=== PATIENT | female | born 1950 | race Caucasian/White ===

== ENCOUNTER 2024-10-11 00:43 | Inpatient (IN) | payer OTHER ==
--- OUTSIDE RECORDS SUMMARY | 2024-10-11 00:46 | XMS REPORT | Continuity of Care Document ---
Author Name Unknown Address [address] [place] [address] [facility] thconnect Address [address] [place] [address] Care Team Providers Care Chief Librarian Work With Blind Name Role Phone ChenCarlo Momo Primary Care Physician [phone] ORTIZ ANTOINE Attending Clinician ORTIZ Ocampo Attending Clinician UnavailOrtiz Rice MD Attending Clinician [phone] Doctor Unassigned, Tamora Attending Clinician U navailable GC_GCBZW_Kadiyala_S Attending Clinician Unavailcain ble Therapy, Adc Covid Infusion Attending Clinician Unavailable Brennen Snowden MD Attending Clinician [phone] BRENNEN SNOWDEN Attending Clinician Unavailable Ortiz Antoine MD Admitting Clinician [phone] ORTIZ ANTOINE Admitting Clinician Naomi muñoz GC_GCBZW_Kadiyala_S Admitting Clinician Unavaila matthew Payers Payer Name Policy Type Policy Number Effective Date Expirati on Date Source [employer] CHOICE [id number] 2020 00:00:00 [employer] (MEDICARE REPLACEMENT/ADVAN TAGE - PPO) [id number] Problems Condition Name Condition Details Condition Category Status Onset Date Resolution Date Last Treatment Date Treating Clinician Comments Source Ganglion cyst of finger of right hand Ganglion cyst of finger of right hand Disease Active 12-19 00:00: 00 [facility] Pre-op testing Pre-op testing Disease Active 2024-0 2-06 00:00: 00 [facility] Inconclusi ve mammograph y finding Inconclusi ve Mammograph y Finding Problem Active 9- 00:00: 00 [facility] Abnormal findings on diagnostic imaging of breast Abnormal Findings on Diagnostic Imaging of Breast Problem Active 9 00:00: 00 [facility] Screening mammograph y Screening Mammograph y Problem Active 05-27 00:00: 00 [facility] Screening for malignant neoplasm of colon Screening for Malignant Neoplasm of Colon Problem Active 05-27 00:00: 00 [facility] Lateral cystocele Lateral Cystocele Problem Active 05-27 00:00: 00 [facility] Genuine stress incontinen ce Genuine Stress Incontinen ce Problem Active 05-27 00:00: 00 [facility] Atrophic vaginitis Atrophic Vaginitis Problem Active 05-22 00:00: 00 [facility] Gynecologi rogers examinatio n abnormal Gynecologi rogers Examinatio n Abnormal Problem Active 05-22 00:00: 00 [facility] Allergies, Adverse Reactions, Alerts Allergy Name Allergy Type Status Severity Reaction(s) Onset Date Inactive Date Treating Clinician Comments Source CODEINE DRUG INGREDI Active Dizziness 2020-11 0 00:00: 00 [facility] Codeine Propensi ty to adverse reaction s Active Dizziness 2020-11 0 00:00: 00 [facility] NO KNOWN ALLERGIE S Drug Class Active [facility] CODEINE SULFATE Allergy to substanc e Active [facility] Social History Social Habit Start Date Stop Date Quantity Comments Source [facility] function 2024-01-01 00:00:00 2024-01-01 00:00:00 [facility] Tobacco use and exposure 2023-12-22 00:00:00 2023-12-22 00:00:00 Smokeless tobacco non-user [facility] Sex Assigned At 1950 00:00:00 1950 00:00:00 [facility] Smoking Status Start Date Stop Date Source Tobacco smoking consumption unknown [facility] Never smoked tobacco [facility] Medications Ordered Medication Name Filled Medication Name Start Date Stop Date Current Medication? Ordering Clinician Indication Dosage Frequency Signature (SIG) Comments Components Source FENTanyl PF (SUBLIMAZE (PF)) injection 25 mcg 01-01 18:37: 58 Yes 25ug 25 mcg, Slow IV Push, Q5MIN PRN, 4 doses, Starting on Mon01/01/24 at 1237, Until Discontinu ed, Routine, Pain (scale 4-6), [facility] ondansetron (ZOFRAN (PF)) injection 4 mg 01-01 18:37: 58 Yes 4mg 4 mg, Slow IV Push, PRN, 1 dose, Starting on Mon01/01/24 at 1237, Until Discontinu ed, Routine, Nausea and Vomiting (N/V), PACU [facility] bupivacaine (preserv free) (SENSORCAIN E MPF) 0.25 % (2.5 mg/mL) injection 01-01 17:59: 00 01-01 18:09 :59 No PRN, Starting on Mon01/01/24 at 1159, Until Mon01/01/24 at 1209, Routine, Intra-op [facility] sodium chloride 0.9 % irrigation solution 01-01 17:51: 00 01-01 18:09 :59 No PRN, Starting on Mon01/01/24 at 1151, Until Mon01/01/24 at 1209, Intra-op [facility] lactated ringers IV infusion 1,000 mL 01-01 16:15: 00 01-01 16:33 :00 No 1000mL at 42 mL/hr, 1,000 mL, IV Infusion, ONCE, 1 dose, On Mon01/01/24 at 1015, Routine, DSU Pre-op [facility] traMADoL 50 mg tablet 01-01 00:00: 00 01-09 05:59 :00 No [id number] 50mg Take 1 tablet by mouth every 6 (six) hours as needed for Pain (scale 4-6) or Pain (scale 7-10) for up to 7 days. Indication s: acute pain [facility] casirivimab -imdevimab (REGEN-COV (EUA)) injection 1,200 mg 2020-11 009 15:15: 00 08-21 14:02 :00 No [id number] 1200mg 1,200 mg, Subcutaneo us, ONCE, 1 dose, On 08/21/21 at 1015, Routine [facility] Vital Signs Vital Name Observation Time Observation Value Comments S ource Height 2024-06-12 00:00:00 64 [in_i] [facility] BMI (Body Mass Index) 2024-06-12 00:00:00 27.4 kg/m2 [facility] BP Systolic 2024-06-12 00:00:00 147 mm[Hg] [facility] Body Weight 2024-06-12 00:00:00 159.8 [lb_av] [facility] BP Diastolic 2024-06-12 00:00:00 72 mm[Hg] [facility] Systolic blood pressure 2024-01-01 19:25:00 125 mm[Hg] [facility] Diastolic blood pressure 2024-01-01 19:25:00 64 mm[Hg] [facility] Heart rate 2024-01-01 19:25:00 71 /min [facility] Respiratory rate 2024-01-01 19:25:00 18 /min [facility] Oxygen saturation in Arterial blood by Pulse oximetry 2024-01-01 19:25:00 94 /min [facility] Body temperature 2024-01-01 18:09:[address] [facility] Body weight 2023-12-20 16:38:00 71.3 kg [facility] BMI 2023-12-20 16:38:00 26.98 kg/m2 [facility] Systolic blood pressure 2024-01-01 19:25:00 125 mm[Hg] [facility] Diastolic blood pressure 2024-01-01 19:25:00 64 mm[Hg] [facility] Heart rate 2024-01-01 19:25:00 71 /min [facility] Respiratory rate 2024-01-01 19:25:00 18 /min [facility] Oxygen saturation in Arterial blood by Pulse oximetry 2024-01-01 19:25:00 94 /min [facility] Body temperature 2024-01-01 18:09:[address] [facility] Body weight 2023-12-20 16:38:00 71.3 kg [facility] BMI 2023-12-20 16:38:00 26.98 kg/m2 [facility] Body height 2023-12-14 15:36:00 162.6 cm [facility] Body weight 2023-12-14 15:36:00 72.122 kg [facility] BMI 2023-12-14 15:36:00 27.29 kg/m2 [facility] Systolic blood pressure 2021-08-21 14:47:00 124 mm[Hg] [facility] Diastolic blood pressure 2021-08-21 14:47:00 73 mm[Hg] [facility] Heart rate 2021-08-21 14:47:00 94 /min [facility] 2021-08-21 14:47:00 37.17 [facility] Respiratory rate 2021-08-21 14:47:00 20 /min [facility] Oxygen saturation in Arterial blood by Pulse oximetry 2021-08-21 14:47:00 94 /min [facility] Body height 2021-08-21 14:00:00 162.6 cm [facility] Body weight 2021-08-21 14:00:00 69.854 kg [facility] BMI 2021-08-21 14:00:00 26.43 kg/m2 [facility] Procedures Procedure Date / Time Performed Performing Clinician Source MAMMO, diagnostic, digital, bilateral 2024-06-12 00:00:00 [facility] US, breast, bilateral 2024-06-12 00:00:00 [facility] EXTERNAL PROVIDER RECORDS 2024-01-05 06:01:00 Do ctor Unassigned, Tamora [facility] HAND MASS EXCISION 2024-01-01 17:11:[address] [facility] DAY SURGERY - ADC 2024-01-01 06:01:00 Doctor Milka ssigned, Tamora [facility] EKG (SCANNED DOCUMENTS) 2023-12-29 06:01:00 Doct or Unassigned, Tamora [facility] XR CHEST 2 VW 2023-12-28 14:22:39 [facility] 2023-12-20 06:01:00 Do ctor Unassigned, Tamora [facility] DSU PRE-OP 2023-12-15 06:01:00 Doctor Unass igned, Tamora [facility] [id number] CONSENT 2021-08-21 05:01:00 Doctor Unas signed, Tamora [facility] Excision of Cyst of Breast 2014-11-13 00:00:00 [facility] Hemorrhoidectomy 2002-11-13 00:00:00 [facility] Repair of Cystocele 1971-11-13 00:00:00 [facility] Appendectomy 1966-11-13 00:00:00 [facility] Tonsillectomy 1957-11-13 00:00:00 [facility] Medical Encounters Start Date/Time End Date/Time Encounter Type Admission Type Attending Clinicians Care Facility Care Department Encounter ID Source 2024-06-12 00:00:00 2024-06-12 00:00:00 MASON Reyes: [address], [place] [address] , Ph. [facility] - GC_GCBZW_[facility]* [id number] [facility] 2024-01-15 16:00:00 2024-01-15 17:06:34 Outpatient R ORTIZ ANTOINE [facility] [id number] [facility] 2024-01-15 16:00:00 2024-01-15 17:06:34 [facility] 1.2.840.114 350.1.13.10 4.2.7.2.686 [id number] [facility] 2024-01-05 00:00:00 2024-01-05 00:00:00 Orders Only Doctor Unassigned, Tamora [facility] 1.2.840.114 350.1.13.10 4.2.7.2.686 [id number] [facility] 2024-01-03 13:30:00 2024-01-03 13:30:00 Outpatient R ORTIZ ANTOINE [facility] [id number] [facility] 2024-01-01 13:15:00 2024-01-01 15:24:00 Surgery Ortiz Antoine [facility] 1.2.840.114 350.1.13.10 4.2.7.2.686 [id number] [facility] 2024-01-01 10:03:00 2024-01-01 13:35:00 Hospital Encounter Ortiz Antoine [facility] 1.2.840.114 350.1.13.10 4.2.7.2.686 [id number] [facility] 2024-01-01 10:03:00 2024-01-01 13:35:00 Outpatient R ORTIZ ANTOINE [facility] S[facility] [id number] [facility] 2024-01-01 00:00:00 2024-01-01 00:00:00 Orders Only Doctor Unassigned, Tamora [facility] 1.2.840.114 350.1.13.10 4.2.7.2.686 [id number] [facility] 2023-12-29 00:00:00 2023-12-29 00:00:00 Orders Only Doctor Unassigned, Tamora [facility] 1.2.840.114 350.1.13.10 4.2.7.2.686 [id number] [facility] 2023-12-29 00:00:00 2023-12-29 00:00:00 Telephone Ortiz Antoine [facility] 1.2840.114 350.1.13.10 4.2.7.2.686 [id number] [facility] 2023-12-29 00:00:00 2023-12-29 00:00:00 Telephone Ortiz Antoine [facility] 1.2840.114 350.1.13.10 4.2.7.2.686 [id number] [facility] 2023-12-28 08:02:54 2023-12-28 23:59:00 Hospital Encounter Ortiz Antoine [facility] 1.2840.114 350.1.13.10 4.2.7.2.686 [id number] [facility] 2023-12-28 08:02:30 2023-12-28 23:59:00 Outpatient R ORTIZ ANTOINE [facility] [id number] [facility] 2023-12-28 08:02:30 2023-12-28 23:59:00 Hospital Encounter Ortiz Antoine [facility] 1.2840.114 350.1.13.10 4.2.7.2.686 [id number] [facility] 2023-12-28 00:00:00 2023-12-28 00:00:00 Telephone Ortiz Antoine [facility] 1.2840.114 350.1.13.10 4.2.7.2.686 [id number] [facility] 2023-12-26 00:00:00 2023-12-26 00:00:00 Telephone Ortiz Antoine [facility] 1.2840.114 350.1.13.10 4.2.7.2.686 [id number] [facility] 2023-12-20 00:00:00 2023-12-20 00:00:00 Orders Only Doctor Unassigned, Tamora [facility] 1.2840.114 350.1.13.10 4.2.7.2.686 [id number] [facility] 2023-12-19 00:00:00 2023-12-19 00:00:00 Prep For Surgery Ortiz Antoine [facility] 1.0.114 350.1.13.10 4.2.7.2.686 [id number] [facility] 2023-12-18 13:30:00 2023-12-18 13:30:00 Outpatient R ORTIZ ANTOINE [facility] [id number] [facility] 2023-12-18 00:00:00 2023-12-18 00:00:00 Telephone Ortiz Antoine [facility] 1.20.114 350.1.13.10 4.2.7.2.686 [id number] [facility] 2023-12-15 00:00:00 2023-12-15 00:00:00 Telephone AntoineMikemagui English [facility] 1.20.114 350.1.13.10 4.2.7.2.686 [id number] [facility] 2023-12-15 00:00:00 2023-12-15 00:00:00 Orders Only Doctor Unassigned, Tamora [facility] 1.2840.114 350.1.13.10 4.2.7.2.686 [id number] [facility] 2023-12-14 09:37:43 2023-12-14 23:59:00 Hospital Encounter Ortiz Antoine [facility] 1.2.840.114 350.1.13.10 4.2.7.2.686 [id number] [facility] 2023-12-14 09:30:00 2023-12-14 10:02:40 Outpatient R ORTIZ ANTOINE [facility] [place] [id number] [facility] 2023-12-14 09:30:00 2023-12-14 10:02:40 Office Visit Ortiz Antoine [facility] 1.2.840.114 350.1.13.10 4.2.7.2.686 [id number] [facility] 2023-07-21 00:00:00 2023-07-21 00:00:00 Outpatient GC_GCBZW_Ka diyala_S PRIV PRIV [id number] [facility] 2023-07-21 00:00:00 2023-07-21 00:00:00 Outpatient GC_GCBZW_Ka diyala_S PRIV PRIV [id number] [facility] 2023-07-21 00:00:00 2023-07-21 00:00:00 Outpatient GC_GCBZW_Ka diyala_S PRIV PRIV [id number] [facility] 2023-07-04 00:00:00 2023-07-04 00:00:00 Outpatient GC_GCBZW_Ka diyala_S PRIV PRIV [id number] [facility] 2023-06-07 00:00:00 2023-06-07 00:00:00 Outpatient GC_GCBZW_Ka diyala_S PRIV PRIV [id number] [facility] 2023-06-01 00:00:00 2023-06-01 00:00:00 Outpatient GC_GCBZW_Ka diyala_S PRIV PRIV [id number] [facility] 2021-08-21 08:03:55 2021-08-21 09:03:55 Nurse Visit Therapy, Adc Covid Maria Guadalupe Brennen Snowden [facility] 1.840.114 350.1.13.10 4.2.7.2.686 [id number] [facility] 2021-08-21 09:00:00 2021-08-21 09:00:00 Outpatient R BRENNEN SNOWDEN [facility] [id number] [facility] 2021-08-21 00:00:00 2021-08-21 00:00:00 Orders Only Doctor Unassigned, Tamora [facility] 1.840.114 350.1.13.10 4.2.7.2.686 [id number] [facility] Results Test Description Test Time Test Comments Results Result Co mments Source [id number] 14:24:43HISTORY: Preop. TECHNIQUE: PA and lateral views of the chest are obtained. No prior cheststudy available for comparison. FINDINGS: Mild upper lobe predominant obstructive lung disease suspected.No acute pneumonia detected. No pneumothorax or pleural effusion orpulmonary congestion. Cardiothoracic ratio of approximately 11.8/26.2 cm isconsistent with normal cardiac size. Mild thoracolumbar scoliosis noted. No compression deformities seen in thethoracic or upper lumbar vertebral bodies. CONCLUSIONS: No signs of acute cardiopulmonary disease.[facility] Notes Date/Time Note Provider Source 2023-12-29 14:26:40 EKG scanned into patient's chart. Bey [facility] - [facility] 2023-12-29 13:10:30 Marilynn from [facility] pre-op is requesting that lab work for pt be uploaded into chart. Pt stated that Dr. Antoine has a copy of her pre-op lab work. Her surgery is scheduled for Monday01.01.24. Please advise. CTOR SOFTWARE Taniya Andrade [facility] 2023-12-28 09:16:51 Received Lab results from [email or web address].. Scanned into pt chart and placed into the pt chart. CTOR SOFTWARE Julia Bey [facility] 2023-12-27 10:31:29 Called patient and she wanted to see if Dr Chen's office had sent over her labs and urinalysis yet. I checked in [address] and our faxes and nothing came in yet. She's going to contact them to see what the status is on it. Mary Andrade 12/27/2023 10:32 AM [facility] 2023-12-26 13:52:22 Patient is wanting a call back about pre op clearance information that clinic should of received by now. CTOR SOFTWARE Brandie Brandt [facility] 2023-12-22 15:29:34 Images from the original note were not included. Your procedure is at [facility] on 01/01/24. The address is [address] [place] [address], [address] [facility] nursing staff will call you the workday before your procedure to let you know what time to arrive.On the day of your procedure, please go inside that door and check in at the desk. Please note: You may not travel home alone and that includes in a taxi or by bus. We must speak to your Responsible Adult (who will be picking you up) the morning of your procedure, before the start of your procedure. This person must be an adult over the age of 18 years of age. Do not eat any solid food after midnight the night before surgery. You may have sips of clear liquids such as water, gatorade, and sprite up until two hours before your scheduled procedure. You may take your medications with a sip of water as directed by physician. Anticoagulants will be per physician guidance. Medication Note(s)/Instructions: Patient said she already had the the blood work and urinalysis with her primary doctor. She said she told the office to send results to Dr. Antoine's and they would. She will call them again on Monday to make sure it gets done. Patient is aware she needs an EKG and Chest Xray. She will come do it next week before her procedure. Understanding was verbalized, with no questions or concerns at this time. Teach-back method repeated and confirmed. Pending screening, we may test for COVID. If a patient tests positive, their cases are cancelled and/or rescheduled. COVID SCREENING NOTE: Denies COVID symptoms, no testing required. Additional requests, questions, concerns: Patient verbalized understanding of pre-op instructions and voiced no further questions at this time. [facility] 2023-12-19 11:07:28 Called patient to let her know the surgery center said they are full for her surgery date 12/25/23 so she has been moved to 01/01/24 and she was happy about that. She is getting her labs and urinalysis done at her dr's office and will have it faxed over. She will still get her EKG and chest xray done at [facility]. I let the hospital know as well. Mary Andrade 12/19/2023 11:10 AM [facility] 2023-12-19 09:16:26 Called patient but no answer so LVM. Mary Andrade 12/19/2023 9:[facility]23-12-[facility] 13:41:28 Patient is requesting to speak to Mary regarding the paperwork she did this morning for surgery. [facility] 2023-12-15 14:59:57 Had to reschedule her surgery due to insurance not being able to be accepted at [facility] so it was moved to [facility]. She is aware and will come in to sign her paperwork. Mary Andrade 12/15/2023 3:06 PM [facility]
[2024-10-11] MEDS ORDERED: ONDANSETRON 4 MG/2 ML VIAL ONE ×3 (01:17→09:13)
[2024-10-11] MEDS ORDERED: MORPHINE 4 MG/ML SYR ONE ×2 (01:17→04:01)
[2024-10-11] MEDS ORDERED: METOCLOPRAMIDE 10 MG/2mL INJ ONE (01:17)
[2024-10-11] MEDS ORDERED: NA CHLORIDE 0.9% 2,000 ML ONE (01:18)
[2024-10-11 03:43] LABS: PT Prothrombin Time 11.3 SECONDS (9.4-12.5); Protime INR 1.01
[2024-10-11 03:45] LABS: Absolute Lymphocytes (CBC) 0.6 K/uL (0.7-4.9); Absolute Monocytes 0.4 K/uL (0.1-1.3); Absolute Neutrophil 11.1 K/uL (1.8-8.0); Basophils % 0.2 % (0-1.3); Eosinophils % 0.3 % (0-4.4); Hematocrit 41.1 % (36.0-45.0); Hemoglobin 13.6 g/dL (12.0-15.0); Lymphocytes % 4.9 % (15.3-44.8); MCH 29.2 pg (27.0-35.0); MCHC 33.2 g/dL (32.0-36.0); MCV 87.9 fL (80-100); MPV 8.5 fL (7.6-11.3); Monocytes % 2.9 % (3.3-12.3); Neutrophils % 91.7 % (41.7-73.7); Platelets 209 thou/uL (152-406); RBC Red Blood Cell Count 4.67 M/uL (3.86-4.86); Red Cell Distribution Width 13.5 % (12.1-15.2)
[2024-10-11 04:10] LABS: ALT/SGPT 30 U/L (13-56); AST/SGOT 19 U/L (15-37); Albumin 3.8 g/dL (3.4-5.0); Albumin/Globulin Ratio 1.2 (1.1-1.8); Alkaline Phosphatase 95 U/L (45-117); Anion Gap 7.1 mEq/L (5.0-15.0); BUN Blood Urea Nitrogen 13 mg/dL (7-18); Bicarbonate 27 mEq/L (21-32); Bilirubin Direct 0.3 mg/dL (0-0.2); Bilirubin Indirect, Calculated 0.8 mg/dL (0.2-0.8); Bilirubin Total 1.1 mg/dL (0.2-1.0); Globulin 3.2 g/dL (2.3-3.5); Glomerular Filtration Rate 77 ml/min (=/>90); Glucose Level 159 mg/dL (74-106); Lipase 23 U/L (13-75); NT PRO-BNP 121 pg/mL (<125); Potassium 4.1 mEq/L (3.5-5.1); Sodium Level 140 mEq/L (136-145); Troponin High Sensitivity 16.2 pg/mL (<58.9)
[2024-10-11 04:11] LABS: C-Reactive Protein < 2.90 mg/L (<3.00)
[2024-10-11 04:46] LABS: Band Neutrophils 3 % (0-1); Blood Morphology Comment NOT SEEN (NOT SEEN); Differential Total Cells Count 100; Lymphocytes 3 % (15-42); Monocytes 4 % (0-10); Segmented Neutrophils 90 % (40-80)
[2024-10-11 04:47] LABS: Platelet Estimate ADEQ
--- NOTE | 2024-10-11 05:26 | RAD REPORT ---
EXAM: CT Chest, Abdomen and Pelvis With Intravenous Contrast CLINICAL HISTORY: The patient is 74 years old and is Female; ABDOMINAL DISTENTION TECHNIQUE: Axial computed tomography images of the chest, abdomen and pelvis with intravenous contr ast. Sagittal and coronal reformatted images were created and reviewed. This CT exam was performed using one or more of the following dose reduction techniques: automated exposure control, adjustment of the mA and/or kV according to patient size, and/or use of iterative reconstruction technique. COMPARISON: No relevant prior studies available. FINDINGS: CHEST: Lungs: Unremarkable. No mass. No consolidation. Pleural space: Unremarkable. No significant effusion. No pneumothorax. Heart: Unremarkable. No cardiomegaly. No significant pericardial effusion. No significant c oronary artery calcifications. ABDOMEN: Liver: Unremarkable. No mass. Gallbladder and bile ducts: Unremarkable. No calcified stones. No ductal dilation. Pancreas: Unremarkable. No ductal dilation. No mass. Spleen: Unremarkable. No splenomegaly. Adrenals: Unremarkable. No mass. Kidneys and ureters: Unremarkable. No hydronephrosis. No solid mass. Stomach and bowel: Unremarkable. No obstruction. No mucosal thickening. PELVIS: Appendix: No findings to suggest acute appendicitis. Bladder: Unremarkable. No mass. Reproductive: Unremarkable as visualized. CHEST, ABDOMEN and PELVIS: Intraperitoneal space: There may be a small amount of low-density perihepatic free fluid under th e diaphragm. No free air. Bones/joints: Unremarkable. No acute fracture. No dislocation. Soft tissues: Unremarkable. Vasculature: Unremarkable. No aortic aneurysm. Lymph nodes: Unremarkable. No enlarged lymph nodes. IMPRESSION: No acute findings in the chest, abdomen or pelvis. Electronically signed by: Cleveland Vega MD 10/11/2024 05:21 AM [facility] 8 Due to temporary technical issues with the PACS/Boond reporting system, reports are being wesly d by the in-house radiologist without review as a courtesy to ensure prompt reporting the interpreting radiologist is fully responsible for the content of the report. Transcribed Date/Time: 10/11/2024 5:25 AM
--- NOTE | 2024-10-11 06:21 | EDPHYS ---
Physician Documentation [facility] Name: Helena Ramírez Age: 74 yrs Sex: Female : 1950 Arrival Date: 10/11/2024 Time: 00:43 Bed 19 Private MD: ED Physician Rc Ulloa HPI: 10/11 00:58 This 74 yrs old Female presents to ER via Unassigned with complaints of sp4 Epigastric Pain, Back Pain, Vomiting, Shortness Of Breath. 06:24 74-year-old female presents with acute onset of upper abdominal pain back pain vomiting sp4 and shortness of breath.. . Historical: - Allergies: 00:47 Codeine; ha1 - PMHx: 00:47 Hypercholesterolemia; ha1 - PSHx: 00:47 Appendectomy; ha1 - Immunization history:: Adult Immunizations not up to date. - Infectious Disease History:: Denies. - Social history:: Smoking status: Patient denies any tobacco usage or history of. - Family history:: not pertinent. ROS: 06:24 Constitutional: Negative for fever, chills, and weight loss, positive upper abdominal sp4 pain, positive nausea vomiting, positive shortness of breath 06:24 All other systems are negative, Exam: 06:24 Constitutional: This is a well developed, well nourished patient who is awake, alert, sp4 and in no acute distress. Head/Face: Normocephalic, atraumatic. Eyes: Pupils equal round and reactive to light, extra-ocular motions intact. Lids and lashes normal. Conjunctiva and sclera are not injected. Cornea within normal limits. Periorbital areas with no swelling, redness, or edema. ENT: Nares patent. No nasal discharge, no septal abnormalities noted. Tympanic membranes are normal and external auditory canals are clear. Oropharynx with no redness, swelling, or masses, exudates, or evidence of obstruction, uvula midline. Mucous membranes moist. Neck: Trachea midline, no thyromegaly or masses palpated, and no cervical lymphadenopathy. Supple, full range of motion without nuchal rigidity, or vertebral point tenderness. Chest/axilla: Normal chest wall appearance and motion. Nontender with no deformity. No lesions are appreciated. Cardiovascular: Regular rate and rhythm with a normal S1 and S2. No gallops, murmurs, or rubs. Normal PMI, no JVD. No pulse deficits. Respiratory: Lungs have equal breath sounds bilaterally, clear to auscultation and percussion. No rales, rhonchi or wheezes noted. No increased work of breathing, no retractions or nasal flaring. Abdomen/GI: Soft, with normal bowel sounds. No distension or tympany. No guarding or rebound. No evidence of tenderness throughout. Back: No spinal tenderness. No costovertebral tenderness. Skin: Warm, dry with normal turgor. Normal color with no rashes, no lesions, and no evidence of cellulitis. MS/ Extremity: Pulses equal, no cyanosis. Neurovascular intact. Full, normal range of motion. Neuro: Awake and alert, GCS 15, oriented to person, place, time, and situation. Cranial nerves II-XII grossly intact. Motor strength 5/5 in all extremities. Sensory grossly intact. Psych: Awake, alert, with orientation to person, place and time. Behavior, mood, and affect are within normal limits 06:24 ECG was reviewed by the Attending Physician. EKG at 0 114 sinus bradycardia rate 50 otherwise normal. Vital Signs: 00:47 BP 178 / 81; Pulse 58; Resp 17 S; Temp 97.2(T); Pulse Ox 99% on R/A; Weight 68.04 kg; ha1 Height 5 ft. 1 in. ; Pain 8/10; 01:00 BP 162 / 73; Pulse 51; Resp 17; Pulse Ox 100% on R/A; Pain 9/10; rg5 02:00 BP 148 / 74; Pulse 65; Resp 17; Pulse Ox 99% on R/A; rg5 03:30 BP 145 / 67; Pulse 56; Resp 19; Temp 97.2; Pulse Ox 95% on R/A; Pain 5/10; bm8 05:10 BP 144 / 70; Pulse 75; Resp 18; Temp 97.2; Pulse Ox 97% on 2 lpm NC; Pain 6/10; bm8 06:42 Pulse 73; Resp 25; Temp 97.2; Pulse Ox 97% on 3 lpm NC; Pain 5/10; bm8 07:30 BP 149 / 77; Pulse 64; Resp 17; Pulse Ox 98% on R/A; rs5 08:20 BP 144 / 81; Pulse 61; Resp 17; Pulse Ox 98% on R/A; rs5 09:28 BP 147 / 83; Pulse 74; Resp 17; Pulse Ox 99% on R/A; rs5 00:47 Body Mass Index 28.34 (68.04 kg, 154.94 cm) ha1 00:47 Pain Scale: Adult ha1 01:00 Pain Scale: Adult rg5 03:30 Pain Scale: Adult bm8 05:10 Pain Scale: Adult bm8 06:42 Pain Scale: Adult bm8 Tai Coma Score: 03:30 Eye Response: spontaneous(4). Motor Response: obeys commands(6). Verbal Response: bm8 oriented(5). Total: 15. 05:10 Eye Response: spontaneous(4). Motor Response: obeys commands(6). Verbal Response: bm8 oriented(5). Total: 15. 06:24 Eye Response: spontaneous(4). Motor Response: obeys commands(6). Verbal Response: sp4 oriented(5). Total: 15. 06:42 Eye Response: spontaneous(4). Motor Response: obeys commands(6). Verbal Response: bm8 oriented(5). Total: 15. MDM: 01:08 Medical Screening Exam initiated sp4 01:14 Differential diagnosis: arthritis, Basilar Pneumonia Cholelithiasis chronic back pain, sp4 Fatigue Fracture. Data reviewed: vital signs, nurses notes, old medical records, lab test result(s), EKG, radiologic studies, CT scan, ultrasound. Consideration of Admission/Observation Patient was admitted/placed on observation. Escalation of care including admission/observation considered. Management of patient was discussed with the following: Primary Care Provider: April Matos MD . ED course: EXAM: CT Chest, Abdomen and Pelvis With Intravenous Contrast CLINICAL HISTORY: The patient is 74 years old and is Female; ABDOMINAL DISTENTION TECHNIQUE: Axial computed tomography images of the chest, abdomen and pelvis with intravenous contrast. Sagittal and coronal reformatted images were created and reviewed. This CT exam was performed using one or more of the following dose reduction techniques: automated exposure control, adjustment of the mA and/or kV according to patient size, and/or use of iterative reconstruction technique. COMPARISON: No relevant prior studies available. FINDINGS: CHEST: Lungs: Unremarkable. No mass. No consolidation. Pleural space: Unremarkable. No significant effusion. No pneumothorax. Heart: Unremarkable. No cardiomegaly. No significant pericardial effusion. No significant coronary artery calcifications. ABDOMEN: Liver: Unremarkable. No mass. Gallbladder and bile ducts: Unremarkable. No calcified stones. No ductal dilation. Pancreas: Unremarkable. No ductal dilation. No mass. Spleen: Unremarkable. No splenomegaly. Adrenals: Unremarkable. No mass. Kidneys and ureters: Unremarkable. No hydronephrosis. No solid mass. Stomach and bowel: Unremarkable. No obstruction. No mucosal thickening. PELVIS: Appendix: No findings to suggest acute appendicitis. Bladder: Unremarkable. No mass. Reproductive: Unremarkable as visualized. CHEST, ABDOMEN and PELVIS: Intraperitoneal space: There may be a small amount of low-density perihepatic free fluid under the diaphragm. No free air. Bones/joints: Unremarkable. No acute fracture. No dislocation. Soft tissues: Unremarkable. Vasculature: Unremarkable. No aortic aneurysm. Lymph nodes: Unremarkable. No enlarged lymph nodes. IMPRESSION: No acute findings in the chest, abdomen or pelvis. Electronically signed by: Cleveland Vega MD 10/11/2024. 04:06 ED course: EXAM: US Abdomen Limited, Gallbladder CLINICAL HISTORY: Abd pain. TECHNIQUE: sp4 Real-time ultrasound of the right upper quadrant with image documentation. COMPARISON: No relevant prior studies available. FINDINGS: Gallbladder: Gallstones in the region of the gallbladder neck. Mild gallbladder distention. No gallbladder wall thickening or pericholecystic fluid. tomography technologist noted a sonographic positive Powers's sign. Common bile duct: Unremarkable as visualized. No stones. No dilation. IMPRESSION: Cholelithiasis. Mild gallbladder distention. No wall thickening or pericholecystic fluid. tomography technologist noted a sonographic positive Powers's sign.. 05:49 ED course: EXAM: US Abdomen Limited, Gallbladder CLINICAL HISTORY: Abd pain. TECHNIQUE: sp4 Real-time ultrasound of the right upper quadrant with image documentation. COMPARISON: No relevant prior studies available. FINDINGS: Gallbladder: Gallstones in the region of the gallbladder neck. Mild gallbladder distention. No gallbladder wall thickening or pericholecystic fluid. tomography technologist noted a sonographic positive Powers's sign. Common bile duct: Unremarkable as visualized. No stones. No dilation. IMPRESSION: Cholelithiasis. Mild gallbladder distention. No wall thickening or pericholecystic fluid. tomography technologist noted a sonographic positive Powers's sign. Electronically signed by: . 10/11 00:58 Order name: Basic Metabolic Panel; Complete Time: 04:52 sp4 10/11 00:58 Order name: CBC with Diff; Complete Time: 04:52 sp4 10/11 00:58 Order name: LFT's; Complete Time: 04:52 sp4 10/11 00:58 Order name: Magnesium; Complete Time: 04:52 sp4 10/11 00:58 Order name: NT PRO-BNP; Complete Time: 04:52 sp4 10/11 00:58 Order name: PT-INR; Complete Time: 03:59 sp4 10/11 00:58 Order name: Troponin HS; Complete Time: 04:52 4 10/11 00:59 Order name: Lipase; Complete Time: 04:52 4 10/11 00:59 Order name: CRP; Complete Time: 04:52 sp4 10/11 00:59 Order name: TSH; Complete Time: 04:52 4 10/11 03:50 Order name: Manual Differential; Complete Time: 04:52 EDMS 10/11 05:34 Order name: Urinalysis w/ reflexes 8 10/11 05:46 Order name: Troponin High Sensitivity [facility] 10/11 01:07 Order name: CT Chest, Abdomen, Pelvis - W/Contrast 4 10/11 01:08 Order name: US Abdomen Limited [facility] 10/11 05:46 Order name: EKG; Complete Time: 05:46 4 10/11 00:58 Order name: Cardiac monitoring; Complete Time: 01:18 4 10/11 00:58 Order name: EKG - Nurse/Tech; Complete Time: : 4 10/11 00:58 Order name: IV Saline Lock; Complete Time: :4 10/11 00:58 Order name: Labs collected and sent; Complete Time: 03: 4 10/11 00:58 Order name: O2 Per Protocol; Complete Time: 4 10/11 00:58 Order name: O2 Sat Monitoring; Complete Time: 4 10/11 02:21 Order name: Misc. Order: RECOLLECT BLUE TOP; Complete Time: 02:50 rv1 EC:14 Rate is 50 beats/min. Rhythm is regular, Sinus bradycardia. QRS [place] is Normal. [place] sp4 interval is normal. QRS interval is normal. QT interval is normal. No Q waves. T waves are Normal. No ST changes noted. Clinical impression: No evidence of ischemia. Interpreted by me. Reviewed by me. Administered Medications: 01:10 Drug: Ondansetron IVP 4 mg IVP once; over 2 minutes Route: IVP; Site: left forearm; rg5 02:30 Follow up: Response: No adverse reaction rg5 01:10 Drug: metoCLOPramide IVP 10 mg IVP once; over 1 to 2 minutes Route: IVP; Site: left rg5 forearm; 02:30 Follow up: Response: No adverse reaction rg5 01:10 Drug: morphine IVP or IV 4 mg IVP once over 4 mins Route: IVP; Infused Over: 4 mins; rg5 Site: left forearm; 02:30 Follow up: Response: No adverse reaction; Pain is decreased rg5 01:10 Drug: NS 0.9% IV 1000 ml IV at 1 bolus Per protocol; to be given as a bolus over 60 rg5 minutes Route: IV; Rate: 1 bolus; Site: left forearm; 03:43 Follow up: Response: No adverse reaction; IV Status: Completed infusion; IV Intake: bm8 1000ml 02:11 Drug: NS 0.9% IV 1000 ml IV at 125 ml/hr continuous Route: IV; Rate: 125 ml/hr; Site: rg5 left forearm; 04:08 Drug: morphine IVP or IV 4 mg IVP once over 4 mins Route: IVP; Infused Over: 4 mins; bm8 Site: left antecubital; 06:15 Follow up: Response: No adverse reaction bm8 04:08 Drug: Ondansetron IVP 4 mg IVP once; over 2 minutes Route: IVP; Site: left antecubital; bm8 06:15 Follow up: Response: No adverse reaction bm8 06:42 Drug: Piperacillin-Tazobactam IVPB 3.375 grams IVPB once over 60 mins; (mix in NS 100 bm8 mL) Route: IVPB; Infused Over: 60 mins; Site: right forearm; 09:29 Follow up: Response: No adverse reaction; IV Status: Completed infusion; IV Intake: rs5 100ml Disposition Summary: 10/11/24 06:21 Hospitalization Ordered Notes: Hospitalization Status: Inpatient Admission sp4 Provider: Chen, Carlo sp4 Location: Telemetry/MedSurg (Inpatient) sp4 Condition: Stable sp4 Problem: new sp4 Symptoms: have improved sp4 Bed/Room Type: Standard sp4 Room Assignment: 407(10/11/24 08:14) sp Diagnosis - Upper abdominal pain, unspecified sp4 - Acute nausea vomiting, upper abdominal pain, cholelithiasis with acute cholecystitissp4 Forms: - Medication Reconciliation Form sp4 - SBAR form sp4 - Leadership Thank You Letter sp4 Signatures: Dispatcher [employer] EDMS Liliya Carr Heidy, RN RN ha1 Mindy Delgado Sergey, MD MD sp4 Haseeb Christine RN RN bm8 Justin Daugherty RN RN rg5 Constantino Rodriguez RN rs5 Corrections: (The following items were deleted from the chart) 00:59 00:59 BASIC METABOLIC PANEL+C.LAB.BRZ ordered. EDMS EDMS 00:59 00:59 CBC+H.LAB.BRZ ordered. EDMS EDMS 00:59 00:59 HEPATIC FUNCTION+C.LAB.BRZ ordered. EDMS EDMS 00:59 00:59 MAGNESIUM+C.LAB.BRZ ordered. EDMS EDMS 00:59 00:59 PROBNP+C.LAB.BRZ ordered. EDMS EDMS 00:59 00:59 PROTIME (+INR)+COAG.LAB.BRZ ordered. EDMS EDMS 00:59 00:59 Troponin High Sensitivity+C.LAB.BRZ ordered. EDMS EDMS 00:59 00:59 LIPASE+C.LAB.BRZ ordered. EDMS EDMS 00:59 00:59 C-REACTIVE PROTEIN+C.LAB.BRZ ordered. EDMS EDMS 00:59 00:59 THYROID STIMULAT HORMONE+C.LAB.BRZ ordered. EDMS EDMS 01:08 01:08 Chest Abdomen Pelvis W Con+CT.RAD.BRZ ordered. EDMS EDMS 01:08 00:47 Allergies: No Known Allergies; ha1 ha1 05:35 05:35 Urinalysis+U.LAB.BRZ ordered. EDMS EDMS 08:14 06:21 sp4 sp
--- NOTE | 2024-10-11 06:21 | ER ---
Nurse's Notes [facility] Name: Helena Ramírez Age: 74 yrs Sex: Female : 1950 Arrival Date: 10/11/2024 Time: 00:43 Bed 19 Private MD: Diagnosis: Upper abdominal pain, unspecified;Acute nausea vomiting, upper abdominal pain, cholelithiasis with acute cholecystitis Presentation: 10/11 00:47 Chief complaint: Patient states: MID EPIGASTRIC PAIN RADIATES TO BACK STARTED AROUND 8 ha1 PM. NAUSEA/ VOMITING. 00:47 Coronavirus screen: Vaccine status: Patient reports being unvaccinated. Ebola Screen: ha1 No symptoms or risks identified at this time. Initial Sepsis Screen: Does the patient meet any 2 criteria? No. Patient's initial sepsis screen is negative. Does the patient have a suspected source of infection? No. Patient's initial sepsis screen is negative. Risk Assessment: Do you want to hurt yourself or someone else? Patient reports no desire to harm self or others. Onset of symptoms was October 11, 2024. 00:47 Method Of Arrival: Ambulatory ha1 00:47 Acuity: JAMIE 3 ha1 Triage Assessment: 00:47 General: Appears uncomfortable, Behavior is cooperative. Pain: Complains of pain in ha1 epigastric area Pain radiates to back Pain currently is 8 out of 10 on a pain scale. Quality of pain is described as throbbing. Neuro: Level of Consciousness is awake, alert, obeys commands, Oriented to person, place, time, situation. Cardiovascular: Patient's skin is warm and dry. Respiratory: Airway is patent Trachea midline Respiratory effort is even, unlabored, Respiratory pattern is regular, symmetrical. GI: Abdomen is round non-distended, Reports epigastric pain, nausea, vomiting. Historical: - Allergies: 00:47 Codeine; ha1 - PMHx: 00:47 Hypercholesterolemia; ha1 - PSHx: 00:47 Appendectomy; ha1 - Immunization history:: Adult Immunizations not up to date. - Infectious Disease History:: Denies. - Social history:: Smoking status: Patient denies any tobacco usage or history of. - Family history:: not pertinent. Screenin:00 [facility] ED Fall Risk Assessment (Adult) History of falling in the last 3 months, rg5 including since admission No falls in past 3 months (0 pts) Confusion or Disorientation No (0 pts) Intoxicated or Sedated No (0 pts) Impaired Gait No (0 pts) Mobility Assist Device Used No (0 pt) Altered Elimination No (0 pt) Score/Fall Risk Level 0 - 2 = Low Risk Oriented to surroundings, Maintained a safe environment, Hourly rounding (assess needs \T\ fall precautionary measures) done. Abuse screen: Denies threats or abuse. Nutritional screening: No deficits noted. Tuberculosis screening: No symptoms or risk factors identified. Assessment: 01:00 General: Appears in no apparent distress. Behavior is calm, cooperative. Pain: rg5 Complains of pain in back and abdomen Pain currently is 9 out of 10 on a pain scale. Quality of pain is described as aching. 01:00 Neuro: Level of Consciousness is awake, alert, Oriented to person, place, time. rg5 Cardiovascular: Heart tones S1 S2 Patient's skin is warm and dry. Rhythm is sinus bradycardia. Respiratory: Airway is patent Trachea midline Respiratory effort is even, unlabored, Respiratory pattern is regular, symmetrical. GI: Abdomen is round Abd is soft and non tender Reports upper abdominal pain, nausea, vomiting. : No signs and/or symptoms were reported regarding the genitourinary system. EENT: No deficits noted. Derm: Skin is intact, Skin is dry, Skin is normal, Skin temperature is warm. Musculoskeletal: Circulation, motion, and sensation intact. Range of motion: intact in all extremities. 02:00 Reassessment: Patient and/or family updated on plan of care and expected duration. Pain rg5 level reassessed. Patient is alert, oriented x 3, equal unlabored respirations, skin warm/dry/pink. Patient states symptoms have improved. 03:01 Reassessment: Patient and/or family updated on plan of care and expected duration. Pain rg5 level reassessed. Patient is alert, oriented x 3, equal unlabored respirations, skin warm/dry/pink. Patient states feeling better. 03:30 General: RECEIVED REPORT FROM ANA M LORENZANA. bm8 03:39 Reassessment: Patient appears in no apparent distress at this time. Patient and/or bm8 family updated on plan of care and expected duration. Pain level reassessed. Patient is alert, oriented x 3, equal unlabored respirations, skin warm/dry/pink. General: Appears in no apparent distress. comfortable, Behavior is calm, cooperative, appropriate for age. Pain: Complains of pain in right upper quadrant Pain currently is 5 out of 10 on a pain scale. Quality of pain is described as aching. Neuro: No deficits noted. Level of Consciousness is awake, alert, obeys commands, Oriented to person, place, time. Cardiovascular: Denies chest pain, Heart tones S1 S2 present Capillary refill < 3 seconds in bilateral fingers Patient's skin is warm and dry. Rhythm is sinus rhythm. Respiratory: Airway is patent Trachea midline Respiratory effort is even, unlabored, Respiratory pattern is regular, symmetrical, Breath sounds are clear bilaterally. GI: Abdomen is round non-distended, Abdomen is tender to palpation in right upper quadrant POSTIVE FOSTER'S SIGN Reports upper abdominal pain, Pain is 5 out of 10 on a pain scale. : No signs and/or symptoms were reported regarding the genitourinary system. EENT: No signs and/or symptoms were reported regarding the EENT system. Derm: No signs and/or symptoms reported regarding the dermatologic system. Musculoskeletal: No signs and/or symptoms reported regarding the musculoskeletal system. 04:08 Reassessment: AFTER MORPHINE PT BEGAN TAKING SHALLOW BREATHS. O2 APPLIED 3L NC. bm8 05:10 Reassessment: Patient appears in no apparent distress at this time. Patient and/or bm8 family updated on plan of care and expected duration. Pain level reassessed. Patient is alert, oriented x 3, equal unlabored respirations, skin warm/dry/pink. Pain: Complains of pain in right upper quadrant Pain currently is 6 out of 10 on a pain scale. 06:42 Reassessment: Patient appears in no apparent distress at this time. Patient and/or bm8 family updated on plan of care and expected duration. Pain level reassessed. Patient is alert, oriented x 3, equal unlabored respirations, skin warm/dry/pink. Pt is resting in bed talking queitly with family, awaiting room assignment. Patient states feeling better. Patient states symptoms have improved. 07:00 General: Appears in no apparent distress. comfortable, Behavior is calm, cooperative. rs5 Pain: Denies pain. Neuro: Level of Consciousness is awake, alert, obeys commands, Oriented to person, place, time, situation. Cardiovascular: Patient's skin is warm and dry. Respiratory: Airway is patent Respiratory effort is even, unlabored, Respiratory pattern is regular, symmetrical. GI: Abdomen is round non-distended, Abd is soft and non tender X 4 quads. : No signs and/or symptoms were reported regarding the genitourinary system. EENT: No signs and/or symptoms were reported regarding the EENT system. Derm: Skin is intact, Skin is pink, warm \T\ dry. Musculoskeletal: Range of motion: intact in all extremities. 08:10 Reassessment: Patient and/or family updated on plan of care and expected duration. Pain rs5 level reassessed. Patient is alert, oriented x 3, equal unlabored respirations, skin warm/dry/pink. 09:25 Reassessment: Patient and/or family updated on plan of care and expected duration. Pain rs5 level reassessed. Patient is alert, oriented x 3, equal unlabored respirations, skin warm/dry/pink. report given to OR nurse at bedside . Vital Signs: 00:47 BP 178 / 81; Pulse 58; Resp 17 S; Temp 97.2(T); Pulse Ox 99% on R/A; Weight 68.04 kg; ha1 Height 5 ft. 1 in. ; Pain 8/10; 01:00 BP 162 / 73; Pulse 51; Resp 17; Pulse Ox 100% on R/A; Pain 9/10; rg5 02:00 BP 148 / 74; Pulse 65; Resp 17; Pulse Ox 99% on R/A; rg5 03:30 BP 145 / 67; Pulse 56; Resp 19; Temp 97.2; Pulse Ox 95% on R/A; Pain 5/10; bm8 05:10 BP 144 / 70; Pulse 75; Resp 18; Temp 97.2; Pulse Ox 97% on 2 lpm NC; Pain 6/10; bm8 06:42 Pulse 73; Resp 25; Temp 97.2; Pulse Ox 97% on 3 lpm NC; Pain 5/10; bm8 07:30 BP 149 / 77; Pulse 64; Resp 17; Pulse Ox 98% on R/A; rs5 08:20 BP 144 / 81; Pulse 61; Resp 17; Pulse Ox 98% on R/A; rs5 09:28 BP 147 / 83; Pulse 74; Resp 17; Pulse Ox 99% on R/A; rs5 00:47 Body Mass Index 28.34 (68.04 kg, 154.94 cm) ha1 00:47 Pain Scale: Adult ha1 01:00 Pain Scale: Adult rg5 03:30 Pain Scale: Adult bm8 05:10 Pain Scale: Adult bm8 06:42 Pain Scale: Adult bm8 [place] Coma Score: 03:30 Eye Response: spontaneous(4). Motor Response: obeys commands(6). Verbal Response: bm8 oriented(5). Total: 15. 05:10 Eye Response: spontaneous(4). Motor Response: obeys commands(6). Verbal Response: bm8 oriented(5). Total: 15. 06:24 Eye Response: spontaneous(4). Motor Response: obeys commands(6). Verbal Response: sp4 oriented(5). Total: 15. 06:42 Eye Response: spontaneous(4). Motor Response: obeys commands(6). Verbal Response: bm8 oriented(5). Total: 15. ED Course: 00:46 Patient arrived in ED. im 00:51 Justin Daugherty, ANA M is Primary Nurse. rg5 00:58 Rc Ulloa MD is Attending Physician. sp4 01:00 No provider procedures requiring assistance completed. Inserted saline lock: 20 gauge rg5 in right forearm, using aseptic technique. Blood collected. Flushed with 10 mL NS. 01:00 Patient has correct armband on for positive identification. Door closed. Noise rg5 minimized. Warm blanket given. 01:07 Triage completed. ha1 01:18 EKG done, by critical power install technician. af3 02:22 US Abdomen Limited In Process Unspecified. EDMS 03:30 Initial lab(s) drawn, by ia, sent to lab. Inserted saline lock: 20 gauge in left bm8 antecubital area, using aseptic technique. Blood collected. Flushed with 10 mL NS. Patient maintains SpO2 saturation greater than 95% on room air. 03:30 Client placed on continuous cardiac and pulse oximetry monitoring. NIBP monitoring bm8 applied. vein access technician on. Pulse ox on. NIBP on. 04:08 Oxygen administration via nasal cannula \T\ 3L/min Response to oxygen therapy: symptoms bm8 improved. 04:46 CT Chest, Abdomen, Pelvis - W/Contrast In Process Unspecified. EDMS 06:20 Carlo Chen MD is Hospitalizing Provider. sp4 06:42 Patient admitted, IV remains in place. bm8 06:42 Provided Education on: need for admission. bm8 07:10 Report given to Jh RN. bm8 Administered Medications: 01:10 Drug: Ondansetron IVP 4 mg IVP once; over 2 minutes Route: IVP; Site: left forearm; rg5 02:30 Follow up: Response: No adverse reaction rg5 01:10 Drug: metoCLOPramide IVP 10 mg IVP once; over 1 to 2 minutes Route: IVP; Site: left rg5 forearm; 02:30 Follow up: Response: No adverse reaction rg5 01:10 Drug: morphine IVP or IV 4 mg IVP once over 4 mins Route: IVP; Infused Over: 4 mins; rg5 Site: left forearm; 02:30 Follow up: Response: No adverse reaction; Pain is decreased rg5 01:10 Drug: NS 0.9% IV 1000 ml IV at 1 bolus Per protocol; to be given as a bolus over 60 rg5 minutes Route: IV; Rate: 1 bolus; Site: left forearm; 03:43 Follow up: Response: No adverse reaction; IV Status: Completed infusion; IV Intake: bm8 1000ml 02:11 Drug: NS 0.9% IV 1000 ml IV at 125 ml/hr continuous Route: IV; Rate: 125 ml/hr; Site: rg5 left forearm; 04:08 Drug: morphine IVP or IV 4 mg IVP once over 4 mins Route: IVP; Infused Over: 4 mins; bm8 Site: left antecubital; 06:15 Follow up: Response: No adverse reaction bm8 04:08 Drug: Ondansetron IVP 4 mg IVP once; over 2 minutes Route: IVP; Site: left antecubital; bm8 06:15 Follow up: Response: No adverse reaction bm8 06:42 Drug: Piperacillin-Tazobactam IVPB 3.375 grams IVPB once over 60 mins; (mix in NS 100 bm8 mL) Route: IVPB; Infused Over: 60 mins; Site: right forearm; 09:29 Follow up: Response: No adverse reaction; IV Status: Completed infusion; IV Intake: rs5 100ml Medication: 01:00 VIS not applicable for this client. rg5 Intake: 03:43 IV: 1000ml; Total: 1000ml. bm8 09:29 IV: 100ml; Total: 1100ml. rs5 Outcome: 06:21 Decision to Hospitalize by Provider. sp4 :28 Admitted to OR accompanied by nurse, with chart, rs5 :28 Condition: stable 09:28 Instructed on the need for admit, Demonstrated understanding of instructions, 09:30 Patient left the ED. rs5 Signatures: Dispatcher [employer] EDMS Allie Galeano, RN RN ha1 Constantino Rodriguez RN RN rs5 Rc Ulloa MD MD sp4 Tiara Lerma Brad RN RN bm8 Justin Daugherty RN RN rg5 Starr Easton3 Corrections: (The following items were deleted from the chart) 01:08 00:47 Allergies: No Known Allergies; ha1 ha1 03:43 03:42 IV Status: Completed infusion; IV Intake: 1000ml bm8 bm8 09:28 08:20 BP 147 / 83; Pulse 74bpm; Resp 17bpm; Pulse Ox 99% RA; rs5 rs5 09:30 08:01 Response: No adverse reaction rs5 rs5
--- NOTE | 2024-10-11 06:25 | RAD REPORT ---
EXAM: US Abdomen Limited, Gallbladder CLINICAL HISTORY: Abd pain. TECHNIQUE: Real-time ultrasound of the right upper quadrant with image documentation. COMPARISON: No relevant prior studies available. FINDINGS: Gallbladder: Gallstones in the region of the gallbladder neck. Mild gallbladder distention. No gall bladder wall thickening or pericholecystic fluid. electroencephalogram technologist noted a sonographic positive Powers's sign. Common bile duct: Unremarkable as visualized. No stones. No dilation. IMPRESSION: Cholelithiasis. Mild gallbladder distention. No wall thickening or pericholecystic fluid. electroencephalogram technologist noted a sonographic positive Powers's sign. Electronically signed by: Bhavik Dougherty MD 10/11/2024 02:53 AM [facility] Due to temporary technical issues with the PACS/[facility] reporting system, reports are being wesly d by the in-house radiologist without review as a courtesy to ensure prompt reporting the interpreting radiologist is fully responsible for the content of the report. Transcribed Date/Time: 10/11/2024 6:25 AM
[2024-10-11] MEDS ORDERED: PIPERACIL/TAZO 3.375 GM VIAL IV ONE (06:36)
[2024-10-11] MEDS ORDERED: NA CHLORIDE 0.9% 100 ML ONE (06:36)
[2024-10-11 06:49] LABS: Specific Gravity > 1.030 (1.005-1.030); Sqamous Epithelial <5 /HPF (None Seen); Urine Bacteria None Seen /HPF (<20); Urine Bilirubin NEGATIVE (Negative); Urine Blood Negative (Negative); Urine Clarity Clear (Clear); Urine Color Light-Yellow (Yellow); Urine Culture Reflex Order NOT NEEDED; Urine Glucose NEGATIVE (Negative); Urine Ketones 1+ (Negative); Urine Microscopic Reflex YN ORDER UMIC; Urine Nitrite NEGATIVE (Negative); Urine Protein NEGATIVE (Negative); Urine Urobilinogen Normal (Normal); Urine pH 6.5 (5.0-7.0)
[2024-10-11] MEDS ORDERED: ONDANSETRON 4 MG/2 ML VIAL IV PRN ×2 (08:18→11:23)
[2024-10-11] MEDS ORDERED: MORPHINE 4 MG/ML SYR IV PRN (08:18)
[2024-10-11] MEDS ORDERED: MORPHINE 2 MG/ML SYR IV PRN (08:18)
[2024-10-11] MEDS: PIPER TAZO 3.375 GM in NA CHLORIDE 0.9% 100 ML IV SCH (09:00)
[2024-10-11] MEDS: SUGAMMADEX SODIUM 200 MG/2 ML VIAL IV ONE (09:11)
[2024-10-11] MEDS: SUCCINYLCHOLINE 20 MG/ML (10 ML) IV ONE (09:11)
[2024-10-11] MEDS ORDERED: MIDAZOLAM HCL 2 MG/2 ML INJ ONE (09:14)
[2024-10-11] MEDS ORDERED: ROCURONIUM 50 MG/5 ML VIAL IV ONE (09:14)
[2024-10-11] MEDS ORDERED: FENTANYL CITR 100 MCG/2 ML ONE (09:14)
[2024-10-11] MEDS ORDERED: propofoL 200 MG/20 ML VIAL IV ONE (09:14)
[2024-10-11] MEDS ORDERED: LIDOCAINE 2% MPF 5 ML VIAL ONE (09:15)
[2024-10-11] MEDS: BUPIVACAINE 0.5% PF 10 ML VIAL ONE (09:17)
[2024-10-11] MEDS: CEFOXITIN SODIUM 1 GM/VIAL ONE (09:41)
--- NOTE | 2024-10-11 09:57 | P.CNS ---
Date of Consult: 10/11/24 Reason for consult: Abdominal pain History of present illness: Patient is a 74-year-old female who presented to the emergency room with acute onset of epigastric and back pain associated nausea and vomiting which started last night. Symptoms occurred following a large Thanksgiving meal. Patient denies any sore throat, runny nose, cough, headaches, fever or chills. Patient denies any diarrhea, constipation or blood in her stool. Patient denies any dysuria or hematuria. Review of systems: Otherwise unremarkable Past medical history: Hypercholesterolemia Past surgical history: Appendectomy Allergies: Codeine Social history: Patient denies smoking or drinking alcohol Family history: Noncontributory Vital signs: Stable, afebrile Physical exam: Awake, alert and oriented x 3 Head and neck exam: No neck masses, no JVD, throat clear, no evidence of icterus Chest: Clear Heart: S1-S2 Abdomen: Soft, nondistended, positive bowel sounds, right upper quadrant tenderness with rebound and positive Powers's sign Extremity: Neurovascular intact Neuro: Nonfocal Diagnostic data: White count is 12,000, ultrasound shows evidence of acute cholecystitis and cholelithiasis Assessment: Acute cholecystitis and cholelithiasis Plan/recommendation: Admit, n.p.o., IV fluids, IV antibiotics and to the OR for laparoscopic cholecystectomy possible open. Patient and family understand risk, benefits and alternatives and agreed to procedure. CC: Dr. Chen's office
[2024-10-11] MEDS ORDERED: Phenylephrine HCl 10 MG/ML 1 ML VIAL ONE (10:10)
[2024-10-11] MEDS: NA CHLORIDE 0.9% 1,000 ML ONE (10:25)
[2024-10-11] MEDS ORDERED: dexAMETHasone 4 MG/ML VIAL ONE (11:06)
[2024-10-11] MEDS ORDERED: Mastisol Adhesive Liq ONE (11:12)
--- NOTE | 2024-10-11 11:20 | P.OP ---
Date of Service: 10/11/24 Preop diagnosis: Acute cholecystitis and cholelithiasis Postop diagnosis: Same with extensive adhesions Procedure performed: Laparoscopic cholecystectomy, extensive lysis of adhesions Surgeon: Rodríguez Jhaveri MD Aquaculture Farm Manager: Lakshmi MCKEON Estimated blood loss: Minimal Specimen: Gallbladder Findings: As above Anesthesia: General Complications: None Drains: None Fluids and blood products: Nonapplicable Disposition: Recovery room Operative note: Patient brought to the OR and placed in the supine position. General anesthesia began. Patient prepped and draped in usual sterile fashion. Marcaine 0.5% infiltrated locally for postop pain control. 15 blade used to make a 1 cm supraumbilical midline incision. Subcutaneous tissue divided. Fascia identified and divided. #1 Vicryl stay suture placed. Peritoneal cavity was entered a lot of scar tissue was encountered. A 1 cm incision was made in the epigastric region just to the right of midline. Subcutaneous tissue divided. Bleeding controlled with cautery. Fascia identified and divided. #1 Vicryl stay suture placed. Peritoneal cavity entered with sharp and blunt dissection. 12 mm trocar placed into the peritoneal cavity under direct vision. Pneumoperitoneum established. Laparoscopy revealed extensive adhesions. A 11 mm trocar was placed under direct vision in the right subcostal region. LigaSure was utilized to lyse all the adhesions present. Approximately 20 minutes was needed to lyse all of the adhesions. Then a 5 mm trocar was placed in the right upper quadrant as well under direct vision. Laparoscopy revealed acute cholecystitis with a distended gallbladder. Gallbladder was aspirated. Fundus retracted superiorly. Infundibulum identified and retracted inferolaterally. Cystic duct and cystic artery clearly identified with blunt dissection. Clips placed and both structures divided. Cautery used to remove the gallbladder from the liver bed. Gallbladder retrieved through the epigastric incision via Endo Catch bag. Right upper quadrant irrigated and effluent clear. No evidence of bleeding or bile leakage appreciated. All trocars removed under direct vision. Stay sutures tied to each other to reapproximate the fascial defect. Subcutaneous wounds irrigated and bleeding controlled cautery. 3-0 chromic used to approximate subcutaneous tissue and close skin. Sterile dressing applied. Patient awakened and taken to recovery room in good general condition. CC: Dr. Chen's office
[2024-10-11] MEDS ORDERED: TRAMADOL 37.5mg/APAP 325mg PER TAB PO PRN (11:23)
[2024-10-11] MEDS ORDERED: HYDROMORPHONE HCL 1 MG/ML INJ IV PRN (11:23)
[2024-10-11] MEDS: D5 0.9 NS 1,000 ML IV SCH (13:03)
[2024-10-11 16:12] VITALS: BMI 28.3
--- NOTE | 2024-10-11 18:35 | HP ---
Date of Admission: 10/11/2024 Chief Complaint: Back pain, abdominal pain, nausea, vomiting. History Of Present Illness: This is a 74-year-old pleasant female patient who was doing fine in her normal usual state of health until yesterday around 9 p.m. or so after her Thanksgiving meal. She st arted to have pain in her back and right upper quadrant and all across her upper abdomen. She had so me associated nausea, vomiting, and some chills. With this pain, she came into emergency room, and a fter she came into ER, she was evaluated by ER physician. Diagnosed as having gallstone and acute ch olecystitis and I was contacted requesting admission to hospital. I saw her this morning. She was s till in the emergency room and her and daughter were present with her at bedside. Allergies: TO CODEINE THAT MAKES HER FEEL HYPER. Medications: Rosuvastatin 10 mg daily, vitamin D3 2000 units daily. Review of Systems: Constitutional: As mentioned above. GI: As mentioned above. All other systems reviewed and negative. Past Medical History: Significant for allergic rhinitis, COVID-19 infection in August 2021, impaire d fasting glucose, mixed hyperlipidemia, diverticulosis, osteopenia. Past Surgical History: Tonsillectomy, appendectomy, hemorrhoid surgery, bladder suspension. Family History: Mother had diabetes, heart disease, hypertension. Sister has hypertension and high cholesterol. Social History: Negative for smoking and alcohol use. Physical Examination: Vital Signs: When she first came into emergency room, blood pressure 178/81, pulse 58, temperature 9 7.2, respiratory rate 17, oxygen saturation 99%. Weight 68 kg, height 5 feet 1 inch. General: Awake, alert, oriented, not in distress. HEENT: Head atraumatic, normocephalic. Conjunctivae nonerythematous. Sclerae white. Mouth, no thr ush or edema noted. Ears/Nose, no mass, lesion, discharge noted. Neck: Supple. No JVD, lymph nodes, bruit, thyromegaly noted. Lungs: Bilateral good equal air entry. Clear to auscultation. No rhonchi. No rales. Heart: Normal heart sounds, no murmur or gallop. Abdomen: Soft, appears slightly distended. No guarding, rigidity. No rebound tenderness. Bowel so unds hypoactive with presence of tenderness in right upper quadrant. Extremities: No leg edema. No calf tenderness. Skin: No rash, ulcer, cellulitis. Lymphatics: No lymph node enlargement in neck, supraclavicular, infraclavicular region. Neuro: No focal neurological deficit. Chest: Unremarkable. External Genitalia: Deferred. Rectal: Deferred. Laboratory Data: WBC 12, hemoglobin 13.6, platelets 209. Sodium 140, potassium 4.1, chloride 110, b icarb 27, BUN 13, creatinine 0.80, glucose 159, total bilirubin 1.1, AST 19, ALT 30, alkaline phospha tase 95, lipase 23. TSH 2.05. Troponin 16.2 and 10.3. Urinalysis negative except leukocyte esteras e 250, [address] scan of the chest, abdomen, pelvis was negative for any acute changes. Abdom inal ultrasound of right upper quadrant shows presence of gallstones with slightly distended gallblad anh. Impression: 1.Gallstones with acute colicystitis. 2.Hyperlipidemia, mixed. 3.Impaired fasting glucose. 4.Diverticulosis. 5.Osteopenia. 6.Allergic rhinitis. Plan: Admit patient to hospital for further evaluation and management of this problem. The patient is appropriate for inpatient and is expected to spend 2 midnights in hospital. We will go ahead and keep her n.p.o. The patient received 1 dose of morphine and IV Zosyn in the emergency room and I brian l continue her morphine 2 mg every 4 hours as needed for moderate pain and 4 mg every 4 hours as need ed for severe pain. We will also continue Zofran per order for nausea, vomiting. SCD was ordered fo r DVT prophylaxis. We will continue Zosyn 3.375 g IV q.8 hours. Consult general surgeon, Dr. Jhaveri, and I did reach out to him this morning and explained all the details including test results and his plan is to take the patient to surgery this morning, so we will keep the patient n.p.o. The patient was made aware of this plan. Our plan is to keep her in the hospital after surgery. Monitor her cl osely and I will see her tomorrow morning for followup. For hyperlipidemia, she takes statin therapy that she just started. No need for any further intervention in the hospital. Total time spent 80 minutes that includes communication with the emergency room physician, review of emergency room visit record, review of last office visit record from 07/22/2024, communication with g eneral surgeon, and performing today's evaluation and management. CLAYTON/MODL Voice ID: [id number]
[2024-10-11 21:12] VITALS: O2SAT 94
[2024-10-12 06:29] LABS: Absolute Lymphocytes (CBC) 1.2 K/uL (0.7-4.9); Absolute Monocytes 0.9 K/uL (0.1-1.3); Absolute Neutrophil 9.3 K/uL (1.8-8.0); Basophils % 0.2 % (0-1.3); Eosinophils % 0.1 % (0-4.4); Hematocrit 36.4 % (36.0-45.0); Hemoglobin 12.1 g/dL (12.0-15.0); Lymphocytes % 10.3 % (15.3-44.8); MCH 29.3 pg (27.0-35.0); MCHC 33.3 g/dL (32.0-36.0); MCV 87.9 fL (80-100); MPV 8.9 fL (7.6-11.3); Monocytes % 7.9 % (3.3-12.3); Neutrophils % 81.5 % (41.7-73.7); Nucleated Red Blood Cells % 0.1 % (0-0); Platelets 203 thou/uL (152-406); RBC Red Blood Cell Count 4.14 M/uL (3.86-4.86); Red Cell Distribution Width 14.1 % (12.1-15.2)
[2024-10-12 06:46] LABS: Albumin 3.1 g/dL (3.4-5.0); Anion Gap 7.7 mEq/L (5.0-15.0); Bilirubin Total 1.8 mg/dL (0.2-1.0); Globulin 3.1 g/dL (2.3-3.5); Potassium 3.7 mEq/L (3.5-5.1); Protein, Total 6.2 g/dL (6.4-8.2)
[2024-10-12 08:45] VITALS: BP 123/58; TEMP 98.4
--- NOTE | 2024-10-12 11:38 | DS ---
Date of Discharge: 10/12/2024 Disposition: The patient will be discharged to go home. Physical Examination: HEENT: Unremarkable. Lungs: Clear to auscultation. Heart: Sounds normal. Abdomen: Soft. Bowel sounds normal. No guarding, rigidity, tenderness, distention. Bowel sounds n ormoactive. Presence of surgical dressing present from yesterday's gallbladder surgery. Dressing is clean. Does not have any blood stains. Extremities: No leg edema. Labs: Yesterday, white count 12, hemoglobin 13.6, platelets 209. Today, white count 11.4, hemoglobi n 12.1, platelets 203. For chemistry, yesterday, sodium 140, potassium 4.1, chloride 110, bicarb 27, BUN 13, creatinine 0.80, glucose 159. Total bilirubin 1.1, AST 19, ALT 30, alkaline phosphatase 95. Troponin 16.2 on the first set and 10.3 on the second set. Lipase 23. TSH 2.050. Today, sodium 1 40, potassium 3.7, chloride 110, bicarb 26, BUN 9, creatinine 0.89, glucose 152. Total bilirubin 1.8 , AST 66, ALT 80, alkaline phosphatase 70. Hospital Course: This is a 74-year-old pleasant female patient who was admitted to the hospital afte r she came into emergency room yesterday with back pain, abdominal pain, nausea and vomiting. Please see dictated H and P for more information. The patient came into the hospital with above-mentioned complaints, was diagnosed as having acute cholecystitis with gallstones and was admitted to the [facility]. General surgeon, Dr. Jhaveri, was consulted who did laparoscopic cholecystectomy yesterday, and t his was difficult surgery as he described because of scar tissue, but he was able to perform it lapar oscopically. Postoperatively, the patient has done very well. Her pain is much better. In fact, toni reports practically no pain now. She is able to tolerate diet very well this morning and denies an y complaints. Hemodynamically, she is stable and has remained afebrile. The patient has received IV Zosyn since her admission to the hospital. Dr. Jhaveri will see her today for followup, and after belinda t, our plan is to discharge her to go home with following discharge medications and instructions. Final Diagnoses: 1.Gallstones with acute cholecystitis. 2.Hyperlipidemia, mixed. 3.Impaired fasting glucose. 4.Diverticulosis. 5.Osteopenia. 6.Allergic rhinitis. Discharge Medications And Instructions: 1.Continue all prior home medications. 2.Start Augmentin 875 mg 1 tablet by mouth 2 times a day with food for 1 week. 3.Zofran 4 mg take 1 tablet by mouth 4 times a day as needed for nausea, vomiting. 4.Tramadol 50 mg take 1 tablet by mouth 4 times a day as needed for pain. 5.May use Tylenol 500 mg 4 times a day as needed for pain. 6.Follow up at my office next week. 7.Follow with Dr. Jhaveri in 2 weeks. 8.Total time spent today 40 minutes. CLAYTON/MODL Voice ID: [id number] Report ID: [id number]
--- NOTE | 2024-10-12 11:41 | PN ---
Date of Progress Note: 10/12/2024 Subjective: Patient is awake, alert, tolerating diet. Pain is well controlled, ambulating, afebrile . Objective: Vital Signs: Stable, afebrile. Abdomen: Soft, nondistended, nontender. Positive bowel sounds. Laboratory Data: White count is down to 11.4. Chemistry reviewed. Assessment: Status post laparoscopic cholecystectomy, lysis of adhesions. Recommendation: Patient cleared from [facility] for [facility] with discharge instructions given. Patient is to follow up with me in a week. /MODL Voice ID: [id number] Report ID: [id number]
--- NOTE | 2024-10-13 14:16 | EKG ---
Test Date: 2024-10-11 Test Time: 01:14:32 [employer]ipe Assembly Worker: SHANNON MEASUREMENT RESULTS: Intervals: Rate: 50 CT: 140 QRSD: 86 QT: 470 QTc: 428 [place]: P: 53 CT: 140 QRS: 32 T: 38 INTERPRETIVE STATEMENTS: Sinus bradycardia Otherwise normal ECG No previous ECG available for comparison Electronically Signed On 10-13-24 14:14:01 [employer]OL AND DIE TECHNICIAN by Braden Salazar
== END 2024-10-12 11:42 | disposition home or self-care (01) | DRG 419 ==
LOC: ER 00:43 → ERHOLD 08:00 → 4TH 10:37
PROVIDERS: ADMIT Internal Medicine; ATTEND Internal Medicine
PROC: 0FT44ZZ Resection of Gallbladder, Percutaneous Endoscopic Approach (ICD-10-PCS; principal; 2024-10-11 09:30)
DX: K80.00 Calculus of gallbladder with acute cholecystitis without obstruction (principal); E78.2 Mixed hyperlipidemia; J30.9 Allergic rhinitis, unspecified; K57.90 Diverticulosis of intestine, part unspecified, without perforation or abscess without bleeding; M85.80 Other specified disorders of bone density and structure, unspecified site; R73.01 Impaired fasting glucose; Z88.5 Allergy status to narcotic agent; Z86.16 Personal history of COVID-19; Z90.49 Acquired absence of other specified parts of digestive tract
CPT/HCPCS: 36415; 71260; 74177; 76705; 80048; 80053; 80076; 81001; 83690; 83735; 83880; 84443; 84484; 85025; 85610; 86140; 88304; 93005; 94010; 99285; J0694; J1100; J2003; J2250; J2371; J2405; J2543; J2704; J2765; J3010; J7030; J7042; Q9967